=== PATIENT | female | born 1980 | race Caucasian/White ===

== ENCOUNTER 2021-09-18 10:15 | Outpatient (CLI) | payer SELFPAY ==
[2021-09-18 12:21] LABS: Vitamin D,25 Hydroxy 35.7 ng/mL
[2021-09-18 12:27] LABS: Thyroid Stim Hormone (TSH) 0.82 uIU/mL (0.358-3.74)
[2021-09-18 13:00] LABS: Hemoglobin A1c 5.2 % (3.8-5.6)
[2021-09-21 17:18] LABS: HPV APTIMA, High Risk Negative (Negative)
== END 2021-09-18 23:59 | disposition home or self-care (01) ==
LOC: WOBLAB 10:18
PROVIDERS: Visit Provider Student in an Organized Health Care Education/Training Program
DX: Z12.4 Encounter for screening for malignant neoplasm of cervix (principal); Z13.29 Encounter for screening for other suspected endocrine disorder
CPT/HCPCS: 36415; 82306; 83036; 84443; 87624; 88175; G0145

== ENCOUNTER → 2023-05-30 | Outpatient (CLI) | payer SELFPAY ==
--- NOTE | 2023-05-30 13:15 | BRBX_PTH ---
PATIENT: NADIR TROY LOC: [facility] U#:[id number] AGE/SX: 43/F ROOM: RE05/30/[address]: Dr. Swati Rhodes MD : [id number] BED: DIS: 05/30/2023 SPEC #: [id number] RECD: 05/30/23 13:41 STATUS: [place] TORIE #: [id number] LIAM: 05/30/23 13:[address]: Swati Rhodes DEPT: SURGICAL PATHOLOGY RECD BY: Katarzyna Martinez ENTERED: 06/02/23 08:30 SP TYPE: BREAST BX OTHR DR: ISADORA Epstein Tissues: Breast, NOS Procedures: Surgery Specimen Level IV HEADER OPERATION: Biopsy left breast mass PRE-OP DIAGNOSIS: Left breast mass TISSUE SUBMITTED: Left breast tissue ISCHEMIC TIME: Less than one minute MICROSCOPIC DIAGNOSIS Left breast tissue, core biopsy: Fibroadenoma. Negative for atypia or malignancy. See comment. SJ: 06/03/2023 COMMENT Correlation with clinical, radiologic findings and appropriate follow up are necessary. MICROSCOPIC DESCRIPTION Slides are reviewed. GROSS DESCRIPTION Received in formalin is one container labeled with the patient name and designated left breast. The specimen consists of multiple irregular and elongated fragments of [place]-yellow fibroadiopse tissue meauring in aggregate 1 x 0.5 x 0.1 cm. The specimen is totally submitted in one cassette. / Elvis 06/02/23 TC:1 CPT: 48021
== END | disposition home or self-care (01) ==
LOC: LABSPEC 14:03
PROVIDERS: PCP Physician Assistant; Referring Provider Surgery; Visit Provider Surgery
DX: D24.2 Benign neoplasm of left breast (principal)
CPT/HCPCS: 88305